=== PATIENT | female | born 1935 | race Caucasian/White ===

== ENCOUNTER → 2017-04-20 | Outpatient (CLI) | payer OTHER | LOC: BHFA 11:30 | PROVIDERS: ATTEND Internal Medicine Cardiovascular Disease | DX: I48.0 Paroxysmal atrial fibrillation (principal); Z79.899 Other long term (current) drug therapy ==

== ENCOUNTER → 2017-04-26 | Outpatient (CLI) | payer OTHER | LOC: BHFA 13:15 | PROVIDERS: ATTEND Internal Medicine Cardiovascular Disease | DX: I48.92 Unspecified atrial flutter (principal); I48.0 Paroxysmal atrial fibrillation ==

== ENCOUNTER 2018-06-13 12:59 | Emergency (ER) | payer OTHER ==
--- NOTE | 2018-06-13 13:17 | EDPHY ---
H & P Stated Complaint: Nausea, lightheadedness, palpitations Time Seen by Provider: 06/13/18 13:17 HPI/ROS: CHIEF COMPLAINT: Nausea, lightheadedness, palpitations HISTORY OF PRESENT ILLNESS: The patient presents the ED with several day history of intermittent nausea, lightheadedness and palpitations. She has a history of chronic atrial fibrillation and is anticoagulated with Eliquis. She denies any history of fall or trauma. She denies headache or neck pain. She denies any focal numbness or weakness. Patient does have chronic urinary frequency without dysuria. She denies any acute pain, dyspnea, asymmetric calf pain or swelling or additional acute complaints. She denies any recent medication changes. She denies increasing activity or decreased fluid intake. The patient reports her symptoms are worsened with ambulation. She denies any diarrhea, vomiting or significant abdominal pain. REVIEW OF SYSTEMS: A comprehensive 10 point review of systems is otherwise negative aside from elements mentioned in the history of present illness. Source: Patient - Personal History Current Tetanus Diphtheria and Acellular Pertussis (TDAP): Yes Tetanus Vaccine Date: probably 2010 - Medical/Surgical History Hx Asthma: No Hx Chronic Respiratory Disease: No Hx Diabetes: No Hx Cardiac Disease: Yes Hx Renal Disease: No Hx Cirrhosis: No Hx Alcoholism: No Hx HIV/AIDS: No Hx Splenectomy or Spleen Trauma: No Other PMH: Afib, HTN, Arthritis, Elevated Cholesterol, Colon CA 1989, Broken Pelvis, Knee Replacement - Social History Smoking Status: Former smoker - Physical Exam Exam: General Appearance: Alert, no distress Eyes: Pupils equal and round no pallor or injection ENT, Mouth: Dry mucous membranes Respiratory: There are no retractions, lungs are clear to auscultation Cardiovascular: Regular rate and rhythm Gastrointestinal: Abdomen is soft and nontender, no masses, bowel sounds normal Neurological: A&O, normal motor function, normal sensory exam, normal cranial nerves Skin: Warm and dry, no rashes Musculoskeletal: Neck is supple nontender Extremities: symmetrical, full range of motion Psychiatric: Patient is oriented X 3, there is no agitation Constitutional: Initial Vital Signs Temperature (C) 36.6 C 06/13/18 13:05 Heart Rate 107 H 06/13/18 13:05 Respiratory Rate 20 06/13/18 13:05 Blood Pressure 167/89 H 06/13/18 13:05 O2 Sat (%) 91 L 06/13/18 13:05 O2 Delivery Mode Room Air Allergies/Adverse Reactions: codeine [Codeine] Allergy (Verified 02/15/13 10:14) N/V Home Medications: Medication Instructions Recorded Alendronate Sodium [Fosamax] 70 mg PO MO@07 01/29/13 Calcium Carbonate [Calcicarb] 650 mg PO DAILY 01/29/13 Cholecalciferol Vit D3 [Vitamin D3 2,000 units PO DAILY 01/29/13 1000 units (OTC)] Levothyroxine [Synthroid 100 mcg 100 mcg PO DAILY06 01/29/13 (RX)] POTASSIUM CHLORIDE [K-Belia] 20 meq PO DAILY 01/29/13 sulfaSALAzine [Sulfazine] 1,000 mg PO BID 01/29/13 Polyethylene Glycol 3350 [Miralax 17 gm PO DAILY PRN 02/15/13 17 gm (OTC)] Atorvastatin Calcium [Lipitor 10 10 mg PO DAILY 02/19/13 mg (RX)] Diltiazem Cd [Cardizem ER 180 MG 180 mg PO DAILY 05/15/13 (RX)] Pantoprazole Sodium [Protonix 40mg 40 mg PO DAILY 05/15/13 (RX)] Pharmacy Completed 05/15/13 05/15/13 Rivaroxaban [Xarelto 10mg (RX)] 20 mg PO DAILY 05/15/13 Medical Decision Making - Diagnostics EKG Interpretation: EKG: Complete interpretation has been separately recorded in the [facility] archive. Summary impression: Sinus rhythm, rate 94 ED Course/Re-evaluation: The patient presents the ED with several days of vague complaints including palpitations, nausea and lightheadedness. She is noted to be neurologically intact and hemodynamically stable. She does appear to be dehydrated clinically. Her EKG demonstrates a normal sinus rhythm. Laboratory studies and urinalysis are within normal limits. The patient's neurologic examination is normal. This point time I see no obvious arrhythmia, evidence of ischemia, infection or metabolic explanation for her symptoms. I have encouraged the patient to increase her fluid intake. I do feel it is reasonable to discharge patient to home with instructions that she return to the ED for any markedly worsening symptoms or other concerns. The patient is comfortable with this plan and disposition. She will follow up with her primary care provider for recheck as needed. Differential Diagnosis: Differential diagnosis considered includes arrhythmia, urinary tract infection, dehydration, orthostasis, myocardial infarction - Data Points Laboratory Results: Laboratory Results 06/13/18 13:25 06/13/18 13:25 06/13/18 06/13/18 06/13/18 14:08 13:25 13:25 WBC 5.72 10^3/uL 10^3/uL (3.80-9.50) RBC 4.19 10^6/uL 10^6/uL (4.18-5.33) Hgb 14.1 g/dL g/dL (12.6-16.3) Hct 43.1 % % (38.0-47.0) MCV 102.9 fL H fL (81.5-99.8) MCH 33.7 pg pg (27.9-34.1) MCHC 32.7 g/dL g/dL (32.4-36.7) RDW 13.2 % % (11.5-15.2) Plt Count 244 10^3/uL 10^3/uL (150-400) MPV 9.1 fL fL (8.7-11.7) Neut % (Auto) 54.1 % % (39.3-74.2) Lymph % (Auto) 34.1 % % (15.0-45.0) [place] % (Auto) 8.7 % % (4.5-13.0) Eos % (Auto) 1.6 % % (0.6-7.6) Baso % (Auto) 1.0 % % (0.3-1.7) Nucleat RBC Rel Count 0.0 % % (0.0-0.2) Absolute Neuts (auto) 3.09 10^3/uL 10^3/uL (1.70-6.50) Absolute Lymphs (auto) 1.95 10^3/uL 10^3/uL (1.00-3.00) Absolute Monos (auto) 0.50 10^3/uL 10^3/uL (0.30-0.80) Absolute Eos (auto) 0.09 10^3/uL 10^3/uL (0.03-0.40) Absolute Basos (auto) 0.06 10^3/uL 10^3/uL (0.02-0.10) Absolute Nucleated RBC 0.00 10^3/uL 10^3/uL (0-0.01) Immature Gran % 0.5 % % (0.0-1.1) Immature Gran # 0.03 10^3/uL 10^3/uL (0.00-0.10) Sodium 141 mEq/L mEq/L (135-145) Potassium 4.1 mEq/L mEq/L (3.3-5.0) Chloride 101 mEq/L mEq/L (97-110) Carbon Dioxide 31 mEq/l mEq/l (22-31) Anion Gap 9 mEq/L mEq/L (8-16) BUN 14 mg/dL mg/dL (7-23) Creatinine 0.7 mg/dL mg/dL (0.6-1.0) Estimated GFR > 60 Glucose 106 mg/dL H mg/dL (70-100) Calcium 10.4 mg/dL mg/dL (8.5-10.4) Troponin I 0.016 ng/mL ng/mL (0.000-0.034) Urine Color YELLOW Urine Appearance HAZY Urine pH 8.0 H (5.0-7.5) Ur Specific [place] 1.006 (1.002-1.030) Urine Protein NEGATIVE (NEGATIVE) Urine Ketones NEGATIVE (NEGATIVE) Urine Blood NEGATIVE (NEGATIVE) Urine Nitrate NEGATIVE (NEGATIVE) Urine Bilirubin NEGATIVE (NEGATIVE) Urine Urobilinogen NEGATIVE EU EU (0.2-1.0) Ur Leukocyte Esterase NEGATIVE (NEGATIVE) Urine Glucose NEGATIVE (NEGATIVE) Medications Given: Discontinued Medications Sodium Chloride (Ns) 1,000 mls @ 0 mls/hr IV EDNOW ONE; Wide Open PRN Reason: Protocol Stop: 06/13/18 13:27 Last Admin: 06/13/18 14:05 Dose: 1,000 mls Departure - Departure Disposition: Home, Routine, Self-Care Clinical Impression: Palpitations Condition: Good Instructions: Heart Palpitations (DC) Additional Instructions: 1. Please return to the ED for markedly worsening symptoms, chest pain, difficulty breathing or other concerns. 2. Please schedule a follow-up appointment with your primary care provider for a recheck within the week. 3. The testing done in the emergency department today demonstrates no cardiac condition, evidence of urinary tract infection or metabolic abnormality. Referrals: Dunia Contreras MD [Primary Care Provider] - As per Instructions
--- NOTE | 2018-06-13 13:18 | CPEKG ---
Heart Rate: 94 RR Interval: 638 P-R Interval: 200 QRSD Interval: 78 QT Interval: 336 QTC Interval: 421 P [place]: 71 QRS [place]: -17 T Wave [place]: 91 EKG Severity - ABNORMAL ECG - EKG Impression: SINUS RHYTHM Electronically Signed By: Duc Haque 13-Jun-2018 14:05:35
[2018-06-13] MEDS ORDERED: NS 1,000 ML IV ONE (13:26)
[2018-06-13 13:36] LABS: PLATELET COUNT 244 10^3/uL (150-400)
[2018-06-13 14:59] VITALS: BP 167/95
== END 2018-06-13 14:57 | disposition home or self-care (01) ==
DX: R00.2 Palpitations (principal); E86.9 Volume depletion, unspecified; I10 Essential (primary) hypertension; Z87.891 Personal history of nicotine dependence

== ENCOUNTER 2018-11-14 17:19 | Emergency (ER) | payer OTHER ==
--- NOTE | 2018-11-14 17:46 | EDPHY ---
H & P Time Seen by Provider: 11/14/18 17:30 HPI/ROS: CHIEF COMPLAINT: Difficulty with speech HISTORY OF PRESENT ILLNESS: Patient and both daughters present with parts of the history. Apparently she has been having trouble according to her daughter who lives in [place], for about the past 2 weeks. Her speech is been slower and she has been "grasping for words" and the patient agrees that she is having trouble thinking of words as well as trouble saying then when she knows what she wants to say. She thinks it has been for about a week. Of note patient has been getting physical therapy for about 3 weeks because of her balance. She has an intermittent headache off and on for the past 2 weeks which is associated. Not associated with any focal weakness or numbness or visual symptoms. No dizziness or vertigo. No neck pain or fevers. REVIEW OF SYSTEMS: Eye: no change in vision ENT: no sore throat or ear symptoms Cardiac: no chest pain or syncope Pulmonary: no cough or SOB Abdomen: no vomiting, diarrhea, abdominal pain Musculoskeletal: No neck pain Skin: no rash Neuro: HPI Constitutional: no fever : no urinary symptoms A comprehensive 10 point review of systems is otherwise negative aside from elements mentioned in the history of present illness. PAST MEDICAL HISTORY: Includes atrial fibrillation on Eliquis, hypertension, arthritis, cholesterol, colon cancer. Social history: Here with both daughters. General Appearance: Alert and conversant, cooperative. Eyes: No scleral icterus. Pupils equal reactive extraocular motion intact. ENT, Mouth: Normal mucous membranes. Respiratory: Normal respiratory effort, breath sounds equal, lungs are clear to auscultation. Cardiovascular: Regular rate and rhythm. Gastrointestinal: Abdomen is soft and non tender. Neurological: Alert, face symmetric, normal motor and sensory in extremities. [id number] normal bilaterally, no pronator drift, speech is halting although she is able to name objects such as: eyeglasses, a pen, a cane. Skin: Warm and dry, no rashes. No petechiae or purpura. Musculoskeletal: Normal ROM, no meningeal signs. Psychiatric: Not agitated. Emergency Department course/MDM: Noncontrast head CT for neurologic symptoms and headache on Eliquis. Labs to include CBC and chemistry, EKG and urinalysis. 1809: negative head CT per Kody. 1850: Discussed with Michael requests MRI without, DC if negative. 1899: Discussed with patient and family and consented. 2121: Results of MRI discussed, clinically the patient does not have meningitis. My suspicion for subarachnoid is low. The patient and family are comfortable with discharge without spinal tap or admission in. Neurology Clinic referral. Smoking Status: Former smoker Constitutional: Initial Vital Signs Temperature (C) 37.1 C 11/14/18 17:27 Heart Rate 108 H 11/14/18 17:27 Respiratory Rate 16 11/14/18 17:27 Blood Pressure 156/74 H 11/14/18 17:27 O2 Sat (%) 94 11/14/18 17:27 O2 Delivery Mode Room Air Allergies/Adverse Reactions: codeine [Codeine] Allergy (Verified 02/15/13 10:14) N/V Home Medications: Medication Instructions Recorded Calcium Carbonate [Calcicarb] 650 mg PO DAILY 01/29/13 Cholecalciferol Vit D3 [Vitamin D3 2,000 units PO DAILY 01/29/13 1000 units (OTC)] Levothyroxine [Synthroid 100 mcg 100 mcg PO DAILY06 01/29/13 (RX)] POTASSIUM CHLORIDE [K-Belia] 20 meq PO DAILY 01/29/13 sulfaSALAzine [Sulfazine] 1,000 mg PO BID 01/29/13 Polyethylene Glycol 3350 [Miralax 17 gm PO DAILY PRN 02/15/13 17 gm (OTC)] Atorvastatin Calcium [Lipitor 10 10 mg PO DAILY 02/19/13 mg (RX)] Diltiazem Cd [Cardizem ER 180 MG 180 mg PO DAILY 05/15/13 (RX)] Pharmacy Completed 05/15/13 05/15/13 Eliquis 11/14/18 Medical Decision Making - Diagnostics EKG Interpretation: 12-lead EKG interpreted by me; official reading is in computer system. My interpretation is sinus rhythm rate 111, PAC and PVC. Imaging Results: Imaging Impressions Head CT 11/14/18 17:45 Impression: No evidence of hemorrhage or acute intracranial edema. Results called to Dr. Nav Lamb. General information for patients regarding this examination can be found at [email or web address]. If you have questions or comments about this report, please contact me at (hospital) or [phone] (cell). Brain MRI 11/14/18 19:01 Impression: Restricted diffusion in the right subarachnoid space raises the possibility of meningitis. There is no evidence for cerebral infarction. Results discussed with Dr. Lamb at 8:21 PM. Imaging: Discussed imaging studies w/ yardage caller Radiologist Differential Diagnosis: Differential considered including not limited to ALLERGIST IMMUNOLOGIST infection, intracranial mass or bleed, ischemic stroke, partial seizure, Alzheimer's, metabolic - Data Points Laboratory Results: Laboratory Results 11/14/18 17:50 11/14/18 17:50 11/14/18 11/14/18 11/14/18 18:50 17:50 17:50 WBC 7.88 10^3/uL 10^3/uL (3.80-9.50) RBC 3.82 10^6/uL L 10^6/uL (4.18-5.33) Hgb 11.9 g/dL L g/dL (12.6-16.3) Hct 37.6 % L % (38.0-47.0) MCV 98.4 fL fL (81.5-99.8) MCH 31.2 pg pg (27.9-34.1) MCHC 31.6 g/dL L g/dL (32.4-36.7) RDW 13.1 % % (11.5-15.2) Plt Count 377 10^3/uL 10^3/uL (150-400) MPV 8.6 fL L fL (8.7-11.7) Neut % (Auto) 68.9 % % (39.3-74.2) Lymph % (Auto) 18.7 % % (15.0-45.0) [place] % (Auto) 10.7 % % (4.5-13.0) Eos % (Auto) 0.6 % % (0.6-7.6) Baso % (Auto) 0.8 % % (0.3-1.7) Nucleat RBC Rel Count 0.0 % % (0.0-0.2) Absolute Neuts (auto) 5.44 10^3/uL 10^3/uL (1.70-6.50) Absolute Lymphs (auto) 1.47 10^3/uL 10^3/uL (1.00-3.00) Absolute Monos (auto) 0.84 10^3/uL H 10^3/uL (0.30-0.80) Absolute Eos (auto) 0.05 10^3/uL 10^3/uL (0.03-0.40) Absolute Basos (auto) 0.06 10^3/uL 10^3/uL (0.02-0.10) Absolute Nucleated RBC 0.00 10^3/uL 10^3/uL (0-0.01) Immature Gran % 0.3 % % (0.0-1.1) Immature Gran # 0.02 10^3/uL 10^3/uL (0.00-0.10) Sodium 135 mEq/L mEq/L (135-145) Potassium 3.8 mEq/L mEq/L (3.5-5.2) Chloride 98 mEq/L mEq/L (97-110) Carbon Dioxide 29 mEq/l mEq/l (22-31) Anion Gap 8 mEq/L mEq/L (6-14) BUN 18 mg/dL mg/dL (7-23) Creatinine 0.7 mg/dL mg/dL (0.6-1.0) Estimated GFR > 60 Glucose 171 mg/dL H mg/dL (70-100) Calcium 10.2 mg/dL mg/dL (8.5-10.4) Urine Color TIM Urine Appearance MODERATELY TURBID Urine pH 6.0 (5.0-7.5) Ur Specific [place] 1.016 (1.002-1.030) Urine Protein 1+ H (NEGATIVE) Urine Ketones TRACE H (NEGATIVE) Urine Blood NEGATIVE (NEGATIVE) Urine Nitrate NEGATIVE (NEGATIVE) Urine Bilirubin NEGATIVE (NEGATIVE) Urine Urobilinogen NEGATIVE EU EU (0.2-1.0) Ur Leukocyte Esterase 3+ H (NEGATIVE) Urine RBC 0-1 /hpf /hpf (0-3) Urine WBC 1-3 /hpf /hpf (0-3) Ur Epithelial Cells TRACE /lpf /lpf (NONE-1+) Urine Glucose NEGATIVE (NEGATIVE) Departure - Departure Disposition: Home, Routine, Self-Care Clinical Impression: Speech abnormality Qualifiers: Speech disturbance type: unspecified speech disturbance Qualified Code(s): R47.9 - Unspecified speech disturbances Condition: Good Instructions: Aphasia (DC) Referrals: Dunia Contreras MD [Primary Care Provider] - As per Instructions Sebesto,Ward, DO [Doctor of Osteopathy] - 2-3 days without fail (neurology followup)
[2018-11-14 18:11] LABS: PLATELET COUNT 377 10^3/uL (150-400)
--- NOTE | 2018-11-14 20:35 | CPEKG ---
Test Reason : OPEN Blood Pressure : / mmHG Vent. Rate : 111 BPM Atrial Rate : 096 BPM P-R Int : 163 ms QRS Dur : 080 ms QT Int : 344 ms P-R-T Axes : 068 -02 084 degrees QTc Int : 468 ms Sinus tachycardia Multiple premature complexes, vent & supraven Confirmed by Nav Lamb ([id number]) on 11/14/2018 8:35:35 PM Referred By: Confirmed By:Nav Lamb
[2018-11-14 21:03] VITALS: BP 148/90
== END 2018-11-14 21:33 | disposition home or self-care (01) ==
DX: R47.9 Unspecified speech disturbances (principal); I48.91 Unspecified atrial fibrillation; Z79.01 Long term (current) use of anticoagulants; Z85.038 Personal history of other malignant neoplasm of large intestine
CPT/HCPCS: 82607-90; 84481-90

== ENCOUNTER → 2018-12-06 | Outpatient (CLI) | payer OTHER | LOC: BHFA 11:30 | PROVIDERS: ATTEND Internal Medicine Cardiovascular Disease | DX: I48.0 Paroxysmal atrial fibrillation (principal); R47.89 Other speech disturbances ==

== ENCOUNTER → 2018-12-10 | Outpatient (CLI) | payer OTHER ==
--- NOTE | 2018-12-11 12:57 | CPEEG ---
DATE OF STUDY: 12/10/2018 INTERPRETATION: Normal EEG during wakefulness and sleep. There were no potentially epileptogenic ab normalities present during the recording. REPORT: This EEG contains 10 Hz alpha activity to the posterior head regions. There was no abnormal activation at rest, during photic stimulation or hyperventilation. The patient became drowsy and fe ll asleep during the study. There was no abnormal activation during drowsiness, sleep, or during ernesto es of arousal. /[id number]/MODL
== END ==
LOC: FCPNEURO 10:04
PROVIDERS: ATTEND Physician Assistant Medical
DX: R47.89 Other speech disturbances (principal)